=== PATIENT | male | born 1945 | race Caucasian/White ===

== ENCOUNTER → 2017-07-06 | Outpatient (CLI) | payer MEDICARE, BC ==
[~2017-07-06] MED LIST: ASPI325T33 PO; ATOR80TA45 PO; CELL1DRO EACH EYE; CLAR10CA3 PO; DORZ1SOL EACH EYE; FOLI800T PO; HYDR-3516 PO; LEVO25TA4 PO; MULTTAB67 PO; REST0.05 EACH EYE; TRAM50TA PO; VIAG100T PO; VITA100064 PO; WALKER WHEELS/F1 MIS; ZOCO40TA PO
[2017-07-06 11:33] LABS: AUTOMATED NEUTROPHIL # 3.4 TH/MM3 (1.8-7.7); BASOPHIL # 0.1 TH/MM3 (0-0.2); BASOPHIL % 1.4 % (0.0-2.0); EOSINOPHIL # 0.2 TH/MM3 (0-0.4); EOSINOPHIL % 3.4 % (0.0-4.0); HEMATOCRIT 42.9 % (39.0-51.0); HEMO FLAGS DIFF FINAL; LYMPH % 33.3 % (9.0-44.0); LYMPHOCYTE # 2.1 TH/MM3 (1.0-4.8); MEAN CELL VOLUME 89.7 FL (80.0-100.0); MEAN CORPUSCULAR HEMOGLOBIN 30.4 PG (27.0-34.0); MEAN CORPUSCULAR HGB CONC 33.9 % (32.0-36.0); NEUT % 54.9 % (16.0-70.0); PLATELET COUNT 139 TH/MM3 (150-450); RED BLOOD COUNT 4.78 MIL/MM3 (4.50-5.90); RED CELL DISTRIBUTION WIDTH 13.7 % (11.6-17.2); WHITE BLOOD COUNT 6.3 TH/MM3 (4.0-11.0)
[2017-07-06 11:42] LABS: INTERNATIONAL NORMALIZED RATIO 1.1 RATIO; PROTHROMBIN TIME - PATIENT 11.1 SEC (9.8-11.6)
[2017-07-06 11:53] LABS: BICARBONATE 27.2 MEQ/L (21.0-32.0); POTASSIUM 4.5 MEQ/L (3.5-5.1)
--- NOTE | 2017-07-06 12:36 | RADRPT ---
EXAM DATE/TIME: 07/06/2017 12:19 [facility] COMPARISON: No previous studies available for comparison. INDICATIONS : Pre op total knee. Evaluate for pneumonia, pneumothorax, or communicable diseases. MEDICAL HISTORY : None. SURGICAL HISTORY : None. ENCOUNTER: Initial ACUITY: 1 day PAIN SCORE: 0/10 LOCATION: Bilateral chest FINDINGS: PA and lateral views of the chest demonstrate the lungs to be symmetrically aerated without evidence of mass, infiltrate or effusion. The cardiomediastinal contours are unremarkable. Osseous structure s are intact. CONCLUSION: No acute cardiopulmonary disease. Walt Beard MD on July 06, 2017 at 12:34 Board Certified Radiologist. This report was verified electronically.
[2017-07-06 12:38] LABS: BLOOD, URINE NEG (NEG); CALCIUM OXALATE CRYSTALS,URINE OCC /hpf; COMMENT (UR) CULT NOT INDICATED; CULTURE IF INDICATED CULT NOT INDICATED; GLUCOSE,URINE NEG (NEG); HYALINE CAST, URINE 3 /lpf (RARE); KETONE, URINE NEG (NEG); MUCUS URINE MANY /lpf (OCC); NITRITE,URINE NEG (NEG); URINE COLOR YELLOW (YELLW/STRAW)
--- NOTE | 2017-07-06 22:06 | EKG ---
Date Performed: 07/06/2017 Time Performed: 12:05:03 PTAGE: 72 years EKG: SINUS BRADYCARDIA RIGHT BUNDLE BRANCH BLOCK LEFT ANTERIOR FASCICULAR BLOCK ABNORMAL ECG NO PREVIOUS TRACING DOCTOR: Vannesa Rubio Interpretating Date/Time 07/06/2017 22:05:26
== END ==
LOC: CPRE 10:47
PROVIDERS: ATTEND Orthopaedic Surgery
DX: Z01.812 Encounter for preprocedural laboratory examination (principal); Z01.810 Encounter for preprocedural cardiovascular examination; Z01.811 Encounter for preprocedural respiratory examination; M17.12 Unilateral primary osteoarthritis, left knee
CPT/HCPCS: 36415; 71020; 80048; 81001; 85025; 85610; 93005

== ENCOUNTER 2017-07-14 10:04 | Inpatient (IN) | payer MEDICARE, BC ==
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
[~2017-07-14] VITALS: Ht 180.3 cm; Wt 79.6 kg
[~2017-07-14 10:04] MED LIST changes: -HYDR-3516 PO; -WALKER WHEELS/F1 MIS; -ZOCO40TA PO
[2017-07-14] MEDS ORDERED: ceFAZolin INJ 1,000 MG VIAL ONE (10:43)
[2017-07-14] MEDS ORDERED: ceFAZolin 2 GM PREMIX 50 ML ONE (12:17)
[2017-07-14] MEDS ORDERED: METOPROLOL TARTRATE 25 MG TAB PO PRN (12:30)
[2017-07-14] MEDS ORDERED: POVIDONE IODINE 7.5% SCRUB 118 ML BOTTLE TOPICAL SCH (12:30)
[2017-07-14] MEDS ORDERED: LACTATED RINGER'S 1000 ML IV PRN (12:30)
[2017-07-14] MEDS ORDERED: TRANEXAMIC ACID 1 GM PRIOR TO PROCEDURE IV SCH ×4 (12:30→15:30)
[2017-07-14] MEDS ORDERED: POVIDONE IODINE 5% (ANTISEPSIS KIT) 4 APPLICATIONS EACH NARE PRN (12:30)
[2017-07-14] MEDS ORDERED: SODIUM CHLORID 0.9% 500 ML IV PRN (12:30)
[2017-07-14] MEDS ORDERED: ceFAZolin 2 GM PREMIX 50 ML IV SCH (12:30)
[2017-07-14] MEDS ORDERED: CHLORHEXIDINE GLUCONATE 2 % 1 PACK (2 CLOTHS) TOPICAL PRN (12:30)
[2017-07-14] MEDS ORDERED: ROPIVACAINE 0.5% PF INJ 30 ML VIAL ONE (14:26)
[2017-07-14] MEDS ORDERED: Post-op Orders (for Pharmacy) XX ONE (14:50)
[2017-07-14] MEDS ORDERED: DO NOT ADM ANY ANTICOAGULANT DRUGS PRN (14:55)
[2017-07-14] MEDS ORDERED: NALOXONE HCL 0.4 MG/ML AMP IV PUSH PRN (15:00)
[2017-07-14] MEDS ORDERED: diphenhydrAMINE HCL 25 MG CAP PO PRN (15:00)
[2017-07-14] MEDS ORDERED: ZOLPIDEM TARTRATE 5 MG TAB PO PRN (15:00)
[2017-07-14] MEDS ORDERED: ONDANSETRON HCL 4 MG/2 ML VIAL IVP PRN (15:00)
[2017-07-14] MEDS ORDERED: MISCELLANEOUS PHARMACY INFORMATION XX ONE (15:00)
[2017-07-14] MEDS ORDERED: ACETAMINOPHEN 325 MG TAB PO PRN (15:00)
[2017-07-14] MEDS ORDERED: ACETAMINOPHEN/HYDROcodone 325 MG/5 MG TAB PO PRN (15:00)
[2017-07-14] MEDS ORDERED: TRANEXAMIC ACID INJ 1,000 MG in SODIUM CHLORIDE 0.9% INJ 100 ML IV SCH (15:00)
[2017-07-14] MEDS ORDERED: *morphine SULFATE 8 MG/ML PERIprocedure ONLY ONE (15:24)
[2017-07-14] MEDS ORDERED: TRANEXAMIC ACID 1 GM POST-OP IV SCH ×2 (15:30)
[2017-07-14] MEDS ORDERED: TRANEXAMIC ACID IV SCH ×2 (15:30)
[2017-07-14] MEDS ORDERED: [UNRECOGNIZED DRUG - OTHER] IV SCH ×2 (15:30)
[2017-07-14] MEDS: DEXT 5%-NACL 0.45% 1000 ML INJ 1,000 ML IV SCH ×2 (15:50→22:53)
--- NOTE | 2017-07-14 16:01 | RADRPT ---
EXAM DATE/TIME: 07/14/2017 15:08 [facility] COMPARISON: CHEST PA & LAT, July 06, 2017, 12:19. INDICATIONS : Post op left knee surgery. MEDICAL HISTORY : None. SURGICAL HISTORY : None. ENCOUNTER: Initial ACUITY: 1 day PAIN SCORE: 10/10 LOCATION: Left knee FINDINGS: The patient is post left knee arthroplasty. Orthopedic hardware is in excellent position. The alignme nt is good. There is no acute fracture. CONCLUSION: 1. No acute bony abnormality of the left knee identified. Celestino Hernandez MD on July 14, 2017 at 15:58 Board Certified Radiologist. This report was verified electronically.
--- NOTE | 2017-07-14 17:01 | PD.CONS ---
[facility] By [facility] Reason for Consult Medical management Primary Care Physician Neel Corral MD Diagnoses: (1) Hyperlipidemia (2) Hypothyroidism (3) Osteoarthritis of left knee History of Present Illness Mr. Medel is a pleasant 72-year-old [place] with a history of left knee osteoarthritis, previous surgery of the same knee who underwent elective left knee total arthroplasty on 07/14/2017. He underwent a complete papillectomy of the left knee in 1973. Due to ongoing pain patient was evaluated by orthopedic surgery and has received conservative management. Despite aggressive conservative management, patient continued to have pain which led to consideration of surgical intervention. She was seen after surgery in the PACU. Per RN patient required 1 dose of 0.4 mg Narcan after surgery. At the time of this interview, patient is eating dinner and has no acute complaints. He reports his pain is about 5 or 6 out of 10. Denies any chest pain, shortness of breath, fever or chills. Denies any changes in bowel or bladder habits. Denies any cough or abdominal pain. Review of Systems Except as stated in HPI: all other systems reviewed are Neg Past Family Social History Allergies: Coded Allergies: No Known Allergies (Unverified Allergy, Unknown, 07/14/17) Past Medical History Hyperlipidemia Hypothyroidism Past Surgical History Previous left knee surgery in 1973. Reported Medications Claritin 10 mg daily Lipitor 80 mg daily at bedtime Sildenafil 10 mg daily when necessary Aspirin 325 mg daily Tramadol 50 mg every 6 hours when necessary Cyclosporine ophthalmic solution 1 drop each eye twice a day Dorzolamide-atenolol eyedrops Carboxymethylcellulose sodium ophthalmic solution Levothyroxine 25 g daily Folic acid Vitamin D3 1000 unit by mouth daily Multivitamin 1 tablet by mouth daily. Family History Patient's father in his 50s from brain tumor. Grandfather also from brain tumor in his 50s. Patient's mother, brothers had cancer. Does not know the detail of cancer. Social History Patient denies using tobacco, illicit drugs. Very occasionally he drinks beer. Physical Exam Physical Exam GENERAL: This is a well-nourished, well-developed patient, in no apparent distress. SKIN: No rashes, ecchymoses or lesions. Cool and dry. HEAD: Atraumatic. Normocephalic. No temporal or scalp tenderness. EYES: Pupils equal round and reactive. Extraocular motions intact. No scleral icterus. No injection or drainage. ENT: Nose without bleeding, purulent drainage or septal hematoma. Throat without erythema, tonsillar hypertrophy or exudate. Uvula midline. Airway patent. NECK: Trachea midline. No JVD or lymphadenopathy. Supple, nontender, no meningeal signs. CARDIOVASCULAR: Regular rate and rhythm without murmurs, gallops, or rubs. RESPIRATORY: Clear to auscultation. Breath sounds equal bilaterally. No wheezes , rales, or rhonchi. GASTROINTESTINAL: Abdomen soft, non-tender, nondistended. No hepato-splenomegaly , or palpable masses. No guarding. MUSCULOSKELETAL: Extremities without clubbing, cyanosis, or edema. No joint tenderness, effusion, or edema noted. No calf tenderness. Negative Homans sign bilaterally. NEUROLOGICAL: Awake and alert. Cranial nerves II through XII intact. Motor and sensory grossly within normal limits. Five out of 5 muscle strength in all muscle groups. Normal speech. Imaging Last Impressions Knee X-Ray 07/14/17 1453 Signed Impressions: Service Date/Time: Friday, July 14, 2017 15:08 - CONCLUSION: 1. No acute bony abnormality of the left knee identified. Celestino Hernandez MD Assessment and Plan Problem List: (1) Osteoarthritis of left knee ICD Code: M17.12 - Unilateral primary osteoarthritis, left knee (2) Hypothyroidism ICD Code: E03.9 - Hypothyroidism, unspecified (3) Hyperlipidemia ICD Code: E78.5 - Hyperlipidemia, unspecified Assessment and Plan Mr. Medel is a pleasant 72-year-old male with a history of left knee osteoarthritis and previous knee surgery, hypothyroidism, hyperlipidemia who underwent elective left total knee arthroplasty on 07/14/2017. Postsurgery in the PACU patient is currently doing well. No chest pain, shortness of breath , fever or chills. He is eating dinner. He reports 5-6 out of 10 pain. 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 - Bowel regimen - Xarelto 10 mg every 24 hours starting 07/15/2017. - Hyperlipidemia - Hypothyroidism - We'll start atorvastatin 80 mg daily at bedtime and levothyroxine 25 g every morning. Full code. Xarelto 10 mg daily Thank you for the consult. We'll continue to follow this patient with you. Michele Kim DO Jul 14, 2017 17:01
[2017-07-14] MEDS ORDERED: SENNOSIDES 8.6 MG TAB PO PRN (18:45)
[2017-07-14] MEDS ORDERED: BISACODYL 10 MG SUPP RECTAL PRN (18:45)
[2017-07-14] MEDS ORDERED: LACTULOSE SYRUP 20 GM/30 ML CUP PO PRN (18:45)
[2017-07-14] MEDS ORDERED: MAGNESIUM HYDROXIDE SUSP 30 ML CUP PO PRN (18:45)
[2017-07-14 20:03] VITALS: BP 162/76; PULSE 62; RESP 17; TEMP 96.9; O2SAT 100
[2017-07-14] MEDS: ATORVASTATIN 80 MG TAB PO SCH (21:10)
[2017-07-14] MEDS: MORPHINE SULFATE 30 MG/30 ML PCA IV SCH (21:13)
[2017-07-14] MEDS: ceFAZolin 1,000 MG/NS 100 ML IV SCH ×2 (21:56)
[2017-07-14] MEDS: PCA - TOTAL MG MORPHINE DELIVERED PER SHIFT SCH (22:00)
[2017-07-15] VITALS (7 sets, daily range): BP systolic 109–136; BP diastolic 58–75; PULSE 65–77; RESP 16–20; TEMP 96.7–98.2; O2SAT 89–100
[2017-07-15] MEDS: MORPHINE SULFATE 30 MG/30 ML PCA IV SCH ×2 (01:09→14:03)
[2017-07-15] MEDS: ceFAZolin 1,000 MG/NS 100 ML IV SCH ×4 (03:55→09:50)
[2017-07-15] MEDS: DOCUSATE SODIUM 100 MG CAP PO PRN (03:55)
[2017-07-15] MEDS: LEVOTHYROXINE SODIUM 25 MCG TAB PO SCH (06:11)
[2017-07-15] MEDS: PCA - TOTAL MG MORPHINE DELIVERED PER SHIFT SCH ×3 (06:12→22:00)
[2017-07-15] MEDS ORDERED: ASPI325T33 PO (06:53)
[2017-07-15] MEDS ORDERED: HYDR-3516 PO (06:53)
--- NOTE | 2017-07-15 06:55 | HHI.FF ---
Face to Face Verification Diagnosis: (1) Osteoarthritis of left knee Physical Therapy Gait training Knee: Total knee, Protocol: Left Left LE Weight Bearing: WB as tolerated Left LE Range of Motion: Active ROM Nursing Dressing Changes: Daily dressing change I have seen patient Matthew Medel on 07/15/17. My clinical findings support the need for the requested home health care services because: Limited ability to care for self High risk of falls I certify that my clinical findings support that this patient is homebound because: Post-op weakness Unsteady gait/balance Unsafe to leave home unassisted Myles Horan MD Jul 15, 2017 06:55
[2017-07-15] MEDS ORDERED: WALKER WHEELS/F1 MIS (06:56)
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
[2017-07-15 09:19] LABS: HEMATOCRIT 37.7 % (39.0-51.0); REVIEW FLAG FINAL
[2017-07-15] MEDS: DEXT 5%-NACL 0.45% 1000 ML INJ 1,000 ML IV SCH ×3 (10:00→22:53)
[2017-07-15] MEDS: RIVAROXABAN 10 MG TAB PO SCH (14:00)
--- NOTE | 2017-07-15 14:09 | HHI.PR ---
Subjective Remarks Follow-up for left total knee arthroplasty. Patient is currently doing well. Denies any chest pain, shortness of breath, fever or chills. He worked with PT today. Objective Vitals Vital Signs Date Time Temp Pulse Resp B/P (MAP) Pulse Ox O2 Delivery O2 Flow Rate FiO2 07/15/17 14:03 15 07/15/17 08:00 96.7 66 16 131/67 (88) 100 07/15/17 06:12 18 07/15/17 04:00 98.0 68 20 133/65 (87) 100 07/15/17 01:09 18 07/15/17 00:00 98.2 65 20 136/75 (95) 99 07/14/17 22:00 18 07/14/17 21:13 16 07/14/17 20:25 61 12 156/79 (104) 100 Nasal Cannula 2 07/14/17 20:03 96.9 62 17 162/76 (104) 100 07/14/17 20:00 57 12 168/77 (107) 100 Nasal Cannula 2 07/14/17 19:00 68 12 168/87 (114) 100 Nasal Cannula 2 07/14/17 18:00 63 12 160/73 (102) 100 Nasal Cannula 2 07/14/17 17:00 94 12 174/82 (112) 100 Nasal Cannula 2 07/14/17 16:00 54 12 171/77 (108) 100 Nasal Cannula 2 07/14/17 15:45 59 12 163/67 (99) 99 Nasal Cannula 2 07/14/17 15:30 56 12 135/64 (87) 100 Nasal Cannula 2 07/14/17 15:15 62 12 127/61 (83) 98 Nasal Cannula 2 07/14/17 15:00 97.7 45 12 86/53 (64) 98 Nasal Cannula 2 I/O 07/14/17 07/14/17 07/14/17 07/15/17 07/15/17 07/15/17 07:00 15:00 23:00 07:00 15:00 23:00 Intake Total 600 ml 800 ml 880 ml Output Total 100 ml 650 ml 2240 ml Balance 500 ml 150 ml -1360 ml Intake Oral 880 ml IV Total 800 ml Other 600 ml Output Urine Total 500 ml 2200 ml Drainage Total 150 ml 40 ml Estimated Blood Loss 100 ml # Bowel Movements 0 Result Diagram: 07/15/17 0817 Imaging Last Impressions Knee X-Ray 07/14/17 1453 Signed Impressions: Service Date/Time: Friday, July 14, 2017 15:08 - CONCLUSION: 1. No acute bony abnormality of the left knee identified. Celestino Hernandez MD Objective Remarks GENERAL: Alert, oriented 3, NAD. SKIN: Warm and dry. HEAD: Normocephalic. EYES: No scleral icterus. No injection or drainage. NECK: Supple, trachea midline. No JVD or lymphadenopathy. CARDIOVASCULAR: Regular rate and rhythm without murmurs, gallops, or rubs. RESPIRATORY: Breath sounds equal bilaterally. No accessory muscle use. GASTROINTESTINAL: Abdomen soft, non-tender, nondistended. MUSCULOSKELETAL: No cyanosis, or edema. Status post left TKA BACK: Nontender without obvious deformity. No CVA tenderness. A/P Problem List: (1) Osteoarthritis of left knee ICD Code: M17.12 - Unilateral primary osteoarthritis, left knee (2) Hypothyroidism ICD Code: E03.9 - Hypothyroidism, unspecified (3) Hyperlipidemia ICD Code: E78.5 - Hyperlipidemia, unspecified Assessment and Plan Mr. Medel is a pleasant 72-year-old male with a history of left knee osteoarthritis and previous knee surgery, hypothyroidism, hyperlipidemia who underwent elective left total knee arthroplasty on 07/14/2017. Postsurgery in the PACU patient is currently doing well. No chest pain, shortness of breath , fever or chills. He is eating dinner. He reports 5-6 out of 10 pain. 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 - Bowel regimen - Xarelto 10 mg every 24 hours starting 07/15/2017. - Hyperlipidemia - Hypothyroidism - atorvastatin 80 mg daily at bedtime and levothyroxine 25 g every morning. Full code. Xarelto 10 mg daily Likely discharge on 07/17/2017. Problem Qualifiers (1) Osteoarthritis of left knee: Qualified Codes: M17.32 - Unilateral post-traumatic osteoarthritis, left knee Michele Kim DO Jul 15, 2017 2:09 pm
[2017-07-16] VITALS: BP 151/67; PULSE 85; RESP 20; TEMP 98.2; O2SAT 98
[2017-07-16] MEDS: ATORVASTATIN 80 MG TAB PO SCH ×2 (01:28→20:52)
[2017-07-16 04:00] VITALS: BP 130/61; PULSE 80; RESP 20; TEMP 98.6; O2SAT 94
[2017-07-16] MEDS: PCA - TOTAL MG MORPHINE DELIVERED PER SHIFT SCH ×2 (06:00→14:00)
[2017-07-16] MEDS: LEVOTHYROXINE SODIUM 25 MCG TAB PO SCH (06:00)
[2017-07-16] MEDS: DEXT 5%-NACL 0.45% 1000 ML INJ 1,000 ML IV SCH ×3 (06:53→20:52)
[2017-07-16 08:00] VITALS: BP 144/70; PULSE 82; RESP 16; TEMP 98.4; O2SAT 96
--- NOTE | 2017-07-16 10:18 | HHI.PR ---
Subjective Remarks Follow-up for left total knee arthroplasty. Doing well. No chest pain, SOB, fever, chills. Objective Vitals Vital Signs Date Time Temp Pulse Resp B/P (MAP) Pulse Ox O2 Delivery O2 Flow Rate FiO2 07/16/17 04:00 98.6 80 20 130/61 (84) 94 07/16/17 00:00 98.2 85 20 151/67 (95) 98 07/15/17 21:39 98.0 77 18 120/72 (88) 98 07/15/17 17:49 98 21 07/15/17 14:03 15 07/15/17 14:00 15 07/15/17 12:11 98 07/15/17 12:00 97.0 67 16 109/58 (75) 89 I/O 07/15/17 07/15/17 07/15/17 07/16/17 07/16/17 07/16/17 07:00 15:00 23:00 07:00 15:00 23:00 Intake Total 880 ml 1700 ml 1457 ml 320 ml Output Total 2240 ml 1200 ml 680 ml 640 ml Balance -1360 ml 500 ml 777 ml -320 ml Intake Oral 880 ml 600 ml 240 ml 320 ml IV Total 1100 ml 1217 ml Output Urine Total 2200 ml 1200 ml 500 ml 600 ml Drainage Total 40 ml 180 ml 40 ml # Voids 1 # Bowel Movements 0 0 0 Result Diagram: 07/15/17816 Objective Remarks GENERAL: Alert, oriented 3, NAD. SKIN: Warm and dry. HEAD: Normocephalic. EYES: No scleral icterus. No injection or drainage. NECK: Supple, trachea midline. No JVD or lymphadenopathy. CARDIOVASCULAR: Regular rate and rhythm without murmurs, gallops, or rubs. RESPIRATORY: Breath sounds equal bilaterally. No accessory muscle use. GASTROINTESTINAL: Abdomen soft, non-tender, nondistended. MUSCULOSKELETAL: No cyanosis, or edema. Status post left TKA BACK: Nontender without obvious deformity. No CVA tenderness. A/P Problem List: (1) Osteoarthritis of left knee ICD Code: M17.12 - Unilateral primary osteoarthritis, left knee (2) Hypothyroidism ICD Code: E03.9 - Hypothyroidism, unspecified (3) Hyperlipidemia ICD Code: E78.5 - Hyperlipidemia, unspecified Assessment and Plan Mr. Gianfranco is a pleasant 72-year-old male with a history of left knee osteoarthritis and previous knee surgery, hypothyroidism, hyperlipidemia who underwent elective left total knee arthroplasty on 07/14/2017. Postsurgery in the PACU patient is currently doing well. No chest pain, shortness of breath , fever or chills. He is eating dinner. He reports 5-6 out of 10 pain. - Left knee osteoarthritis - Status post left total knee arthroplasty - Continue [place] sliding scale. Morphine DIRECTOR COMM[employer]GANIZATION can likely be discontinued today. - Bowel regimen - Xarelto 10 mg every 24 hours starting 07/15/2017. - Hyperlipidemia - Hypothyroidism - atorvastatin 80 mg daily at bedtime and levothyroxine 25 g every morning. Full code. Xarelto 10 mg daily Likely discharge on 07/17/2017. Problem Qualifiers (1) Osteoarthritis of left knee: Qualified Codes: M17.32 - Unilateral post-traumatic osteoarthritis, left knee Michele Kim DO Jul 16, 2017 10:17
[2017-07-16 12:00] VITALS: BP 161/77; PULSE 70; RESP 16; TEMP 98; O2SAT 99
[2017-07-16] MEDS: RIVAROXABAN 10 MG TAB PO SCH (12:55)
[2017-07-16] MEDS: ACETAMINOPHEN/HYDROcodone 325 MG/5 MG TAB PO PRN (15:22)
[2017-07-16 16:00] VITALS: BP 144/72; PULSE 79; RESP 16; TEMP 98; O2SAT 100
[2017-07-16 20:00] VITALS: BP 118/75; PULSE 75; RESP 20; TEMP 98.2; O2SAT 97
[2017-07-17] VITALS: BP 96/60; PULSE 76; RESP 20; TEMP 98.6; O2SAT 94
[2017-07-17 02:12] VITALS: BP 123/73
[2017-07-17] MEDS: ACETAMINOPHEN/HYDROcodone 325 MG/5 MG TAB PO PRN ×3 (02:17→10:22)
[2017-07-17 04:00] VITALS: BP 127/61; PULSE 66; RESP 20; TEMP 97.6; O2SAT 96
[2017-07-17] MEDS: LEVOTHYROXINE SODIUM 25 MCG TAB PO SCH (06:30)
[2017-07-17 08:00] VITALS: BP 124/77; PULSE 67; RESP 18; TEMP 97.6; O2SAT 95
[2017-07-17] MEDS: DOCUSATE SODIUM 100 MG CAP PO PRN (09:08)
[2017-07-17] MEDS: DEXT 5%-NACL 0.45% 1000 ML INJ 1,000 ML IV SCH (11:47)
[2017-07-17] MEDS: RIVAROXABAN 10 MG TAB PO SCH (11:52)
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
== END 2017-07-17 12:21 | disposition home health service (06) | DRG 470 ==
LOC: HSDI 10:04 → EDUNIT# 13:00 → N06B 20:48
PROVIDERS: ADMIT Orthopaedic Surgery; ATTEND Orthopaedic Surgery
PROC: 3E0T3BZ Introduction of Anesthetic Agent into Peripheral Nerves and Plexi, Percutaneous Approach (ICD-10-PCS; 2017-07-14)
PROC: 0SRD0J9 Replacement of Left Knee Joint with Synthetic Substitute, Cemented, Open Approach (ICD-10-PCS; principal; 2017-07-14 12:34)
DX: M17.12 Unilateral primary osteoarthritis, left knee (principal); E03.9 Hypothyroidism, unspecified; M25.462 Effusion, left knee; M94.262 Chondromalacia, left knee; M23.242 Derangement of anterior horn of lateral meniscus due to old tear or injury, left knee; M23.252 Derangement of posterior horn of lateral meniscus due to old tear or injury, left knee; E78.5 Hyperlipidemia, unspecified; Z85.828 Personal history of other malignant neoplasm of skin; Z87.891 Personal history of nicotine dependence
CPT/HCPCS: 73560; 85014; 85018; 86850; 86900; 86901; 88305; 88311; 94150; J0690; J2270; J2310; J2795; J7120; L1830